=== PATIENT | male | born 1975 | race Caucasian/White ===

== ENCOUNTER 2017-05-02 11:45 | Emergency (ER) | payer OTHER ==
[2017-05-02 14:01] LABS: HEMOGLOBIN 15.3 gm/dl (14.0-17.5); RED BLOOD COUNT 5.21 M/UL (4.20-5.50); WHITE BLOOD COUNT 7.2 K/UL (4.5-11.0)
[2017-05-02 14:27] LABS: BUN/CREATININE RATIO 8 (0-10)
== END 2017-05-02 19:10 | disposition home or self-care (01) ==
LOC: ER1 11:45
PROVIDERS: Emergency Medicine
DX: G40.909 Epilepsy, unspecified, not intractable, without status epilepticus (principal); J34.89 Other specified disorders of nose and nasal sinuses; F17.200 Nicotine dependence, unspecified, uncomplicated
CPT/HCPCS: 36415; 70450; 71010; 80053; 80307; 81001; 82550; 82553; 83874; 84484; 85025; 93005; 99285; Q2009